=== PATIENT | female | born 1950 | race African-American/Black ===

== ENCOUNTER → 2022-09-27 | Outpatient (CLI) | payer MEDICAID ==
[~2022-09-27] VITALS: Ht 151.1 cm; Wt 68.9 kg
[~2022-09-27] MED LIST: ACETAMINOPHEN 500 MG TAB PO ONE; ADENOSINE 58 MG in GIVE UN-DILUTED 0 ML IV ONE; ADENOSINE 90 MG/30 ML INJ IV ONE; ALBUAER3 IN; BENA-36 PO; FOLI-119 PO; METH2.5T PO; PANT40TA2 PO; SIMV40TA18 PO; SUCR1TAB22 PO; TRAM50TA2 PO; [UNRECOGNIZED DRUG - CODE] PO; [UNRECOGNIZED DRUG - CODE] PO
== END | disposition home or self-care (01) ==
LOC: Rad HDHVI 09:25
PROVIDERS: ATTEND Internal Medicine Cardiovascular Disease
DX: I35.1 Nonrheumatic aortic (valve) insufficiency (principal); I10 Essential (primary) hypertension; R06.02 Shortness of breath; I20.0 Unstable angina; I82.409 Acute embolism and thrombosis of unspecified deep veins of unspecified lower extremity; J44.9 Chronic obstructive pulmonary disease, unspecified; E78.00 Pure hypercholesterolemia, unspecified; F17.210 Nicotine dependence, cigarettes, uncomplicated
CPT/HCPCS: 78452; 93005; 93306; 96374; 96375; A9500; J0153; J1642

== ENCOUNTER → 2023-02-01 | Outpatient (CLI) | payer MEDICAID ==
[~2023-02-01] MED LIST changes: -ACETAMINOPHEN 500 MG TAB PO ONE; -ADENOSINE 58 MG in GIVE UN-DILUTED 0 ML IV ONE; -ADENOSINE 90 MG/30 ML INJ IV ONE
== END | disposition home or self-care (01) ==
LOC: RT 10:32
PROVIDERS: ATTEND Internal Medicine Pulmonary Disease
DX: J44.9 Chronic obstructive pulmonary disease, unspecified (principal)
CPT/HCPCS: 94060; 94727; 94729